=== PATIENT | female | born 1985 | race Hispanic/Latino ===

== ENCOUNTER 2016-10-01 06:49 | Emergency (ER) | payer OTHER ==
[~2016-10-01] VITALS: Ht 167.6 cm; Wt 107.0 kg
[~2016-10-01 06:49] MED LIST: ALBU8.5H2 INHALATION; AMOX500C2 PO; CALC600T12 PO; CLIN-78 PO; DOCU250C2 PO; LACT1CAP67 PO; NAPR500T PO; OMEP20TA86 PO; ONDA4TAB6 PO; OXYC1TAB24 PO; PRE20 PO; PREN-99 PO; VALA500T38 PO
[2016-10-01 06:52] VITALS: BP 124/74; PULSE 86; RESP 15; O2SAT 98
--- NOTE | 2016-10-01 07:21 | ED.REPORT ---
HPI-Preg Under 20 Weeks Date of Service October 01, 2016 ED Provider: Charlie Sanz MD The patient is a 7 week female w/ a hx of incompetent cervix who presents to the ED due to vaginal bleeding onset yesterday. She describes diffuse "abdominal pressure." She denies fever, vomiting, dizziness, nausea, and abdominal pain. Pt's last menstrual cycle began on August 13. Nursing Notes Stated Complaint: VAGINAL BLEEDING/8 WK PREG Chief Complaint: & Delivery Nursing Notes Reviewed: Yes Allergies: Coded Allergies: diphenhydramine (Verified Allergy, Severe, throat swell, 03/15/15) lactase (Verified Allergy, Intermediate, hives, 03/15/15) hydrocodone (Verified Allergy, Unknown, HIVES. TOLERATES OXYCODONE, ) Uncoded Allergies: MELONS (Allergy, Unknown, 11/16/13) Scheduled Albuterol HFA (Proair HFA) 8.5 Gm Hfa.aer.ad 2 PUFFS INHALATION Q4H Amoxicillin (Amoxicillin) 500 Mg Capsule 500 MG PO DAILY Calcium Carbonate (Calcium) 600 Mg Tablet 1,200 MG PO DAILY Cephalexin (Keflex) 500 Mg Capsule 500 MG PO QID Clindamycin (Clindamycin) 300 Mg Capsule 300 MG PO QID Lactobacillus Combination No.4 (Probiotic) 1 Each Capsule 1 EACH PO DAILY Omeprazole (Omeprazole) 20 Mg Tablet.dr 20 MG PO DAILY Prednisone (PredniSONE) 20 Mg Tablet 20 MG PO DAILY Valacyclovir (Valacyclovir) 500 Mg Tablet 500 MG PO DAILY Scheduled PRN Docusate Sodium (Docusate Sodium) 250 Mg Capsule 250 MG PO DAILY PRN PRN For Constipation Naproxen (Naprosyn) 500 Mg Tablet 500 MG PO BID PRN PRN For Pain Ondansetron (Zofran) 4 Mg Tablet 4 MG PO Q4H PRN PRN For Nausea oxyCODONE-Acetaminophen 5-325 mg (oxyCODONE-Acetaminophen 5-325 mg) 1 Each Tablet 1-2 TAB PO TID PRN PRN For Pain Miscellaneous Medications Pnv95/Ferrous Fumarate/FA ( Multivitamins Tablet) 1 Each Tablet 1 EACH PO General Time Seen by Provider: 07:31 Chief Complaint Vaginal bleeding Hx Obtained From: Patient Arrived By: Walk-in Onset Occurred: Yesterday Symptom Duration: Since onset Severity: Current: No pain currently Recent Healthcare: No recent doctor visit, No recent hospitalization Similar Sx Previous: No Past Medical History Past Medical History Rh positive Kidney infections Past Surgical History left jaw surgery, D and C Reports: Tonsillectomy Family History Mother 69 yo with DM2, HTN Father 99 yo from "old age" Smoking History Former Smoker Social History Alcohol Use: Denies alcohol use Drug Use: Denies drug use Other Social History: Good social support, Lives with children, Local resident 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 Ambulatory Status Independent Review of Systems Review of Systems Note: abdominal "pressure" Constitutional: Denies: Fever GI: Denies: Abdominal pain, Nausea, Vomiting Female: Reports: Vaginal bleeding - abnl Neurologic: Denies: Dizziness Complete sys rev & neg: except as marked. Physical Exam Initial Vital Signs Vital Signs (First) Date Time Temp Pulse Resp B/P Pulse Ox O2 Delivery O2 Flow Rate FiO2 10/01/16 06:52 36.2 86 15 124/74 98 Room Air Initial VS: Reviewed Head / Eyes: Atraumatic, Normocephalic, PERRL ENT: Mucous membranes moist, Conjunctiva normal Respiratory: Breath sounds normal, Clear to auscultation, No respiratory distress Cardiovascular: Regular rate & rhythm, Heart sounds normal, Intact distal pulses Extremities: Vascular intact, Neuro intact, No swelling, No tenderness Skin: Warm, Dry General/Constitutional: Awake, Alert, Cooperative, Not toxic appearing Abdomen: Atraumatic, Soft, Non-tender Female Genitourinary: No bleeding : FHT present by U/S, No bleeding Minimal clot in the vault no products of conception Interpretation & Diagnostics Lab Results Interpretation Result Diagram: 10/01/16 0745 Test 10/01/16 07:45 10/01/16 09:00 White Blood Count 8.9th/mm3 (3.8-10.1) Red Blood Count 4.57mil/mm3 (3.90-5.20) Hemoglobin 13.8g/dL (12.0-15.6) Hematocrit 41.2% (35.0-46.0) Mean Corpuscular Volume 90.2fL (81-100) Mean Corpuscular Hemoglobin 30.2pg (27.0-35.0) Mean Corpuscular Hemoglobin Concent 33.5% (32.0-37.0) Red Cell Distribution Width 13.6% (12.3-15.4) Platelet Count 176bil/L (150-400) HCG Beta Subunit [id number]/mL Hold [place] Top Tube Received (Received) Urine Color Yellow (YELLOW) Urine Appearance Cloudy (CLEAR,HAZY) Urine pH 5.5 (5.0-8.0) Urine Specific [place] 1.020 (1.003-1.035) Urine Protein Tracemg/dL (NEG,TRACE) Urine Glucose (UA) Negativemg/dL (NEGATIVE) Urine Ketones Negativemg/dL (NEGATIVE) Urine Occult Blood Large (NEGATIVE) Urine Nitrite Negative (NEGATIVE) Urine Bilirubin Negative (NEGATIVE) Urine Urobilinogen Normalmg/dL (NORMAL) Urine Leukocyte Esterase Small (NEGATIVE) Urine RBC Packed/hpf (0-2) Urine WBC 11-50/hpf (0-5) Urine Epithelial Cells Moderate/hpf (NONE-MOD) Urine Crystals None seen (NONE SEEN) Urine Bacteria Few/hpf (NONE-FEW) Urine Hyaline Casts None/lpf (NONE) Urine Granular Casts None seen (NONE SEEN) Urine Waxy Casts None seen (NONE SEEN) Urine Red Blood Cell Casts None seen (NONE SEEN) Urine White Blood Cell Casts None seen (NONE SEEN) Urine Mucus None seen (None Seen) Urine Trichomonas None seen (NONE SEEN) Urine Yeast None (NONE SEEN) Urinalysis Comment None Urine Culture Reflexed Indicated Re-Eval/Medical Decision Med Decision/Clinical Course 30-year-old at 7 weeks by LMP presenting with vaginal bleeding times one day. Ultrasound confirms intrauterine with heart tones 134. Patient with vaginal bleeding in first trimester. Threatened . Recommend follow-up with CLINICAL TRIAL LEADER on Monday. Return precautions if any worsening bleeding, signs symptoms anemia, worsening pain, fevers, any other new or worsening symptoms. Re-Evaluation/Progress : Time of Eval: 08:52 Re-Evaluation/Progress Note: Vaginal exam performed. Counseled Regarding: Diagnosis, Lab results, Need for follow-up, When/why to return to ED Discharge & Departure Primary Impression: Vaginal bleeding in Trimester: first trimester Qualified Code: O46.91 - Antepartum hemorrhage, unspecified, first trimester Disposition: Home Discharge Condition All VS Reviewed: Yes Condition: Stable Additional Instructions: The ultrasound showed that the baby has a heartbeat. There is still a possibility for miscarriage. I am sending you home with the antibiotic, Keflex, in case you have a urinary tract infection. Do not hesitate to return to the Emergency Department for any new or worsening symptoms including excessive bleeding, pain, dizziness, fatigue, or fever. Referrals: Belkys Hughes MD (PCP) Loboibthad Attestation Portion of this note were transcribed by Sadie Lopez. I, Dr. Sanz, personally performed the history, physical exam, and medical decision-making: I reviewed and confirmed the accuracy for the information in the transcribed note. Signed by: henrietta Pastor, 10/01/16 0900 copies to: Belkys Hughes MD, Ben M MD October 01, 2016 07:21 Sadie Lopez October 01, 2016 07:32
[2016-10-01 07:57] LABS: Mean Corpuscular Hemoglobin 30.2 pg (27.0-35.0); Mean Corpuscular Volume 90.2 fL (81-100)
[2016-10-01] MEDS ORDERED: CEPH-512 PO (09:04)
[2016-10-01 09:31] VITALS: BP_SYST 109; BP_SYST 124; BP_DIAS 72; BP_DIAS 74; PULSE 79; PULSE 86; RESP 15; RESP 16; O2SAT 97; O2SAT 98
[2016-10-01 10:01] LABS: APPEARANCE,URINE CLOUDY (CLEAR,HAZY); COLOR,URINE YELLOW (YELLOW); OCCULT BLOOD,URINE LARGE (NEGATIVE); PH,URINE 5.5 (5.0-8.0); UROBILINOGEN,URINE NORMAL (NORMAL)
--- NOTE | 2016-10-01 10:37 | DRSVH ---
PROCEDURE: US OB<14 WKS+OB TRANSVAG INDICATIONS: vag bleeding 1st trimester preg OUTSIDE/PRIOR DATING DATA: Last menstrual period (LMP): 08/13/16 LMP-based estimated date of delivery (LUPE): 05/20/17. First dating scan (date and location): 10/01/16. Estimated date of delivery (LUPE) from first dating scan: 05/19/17. TECHNIQUE: Real-time scanning was performed of the fetus and maternal pelvic organs, with image documentation. Endovaginal scanning was also performed to better visualize the fetus and maternal ovaries. COMPARISON: [facility], OB LTD+OB TRANSVAG, 03/15/2015, 15:33. [facility], US OB<14 WKS+OB TRANSVAG, 01/22/2015, 6:04. FINDINGS: Embryo: OB-INDIRECT SALES REPRESENTATIVE Ultrasound Procedure Report Early Gestation [employer] Mean Gestational Sac Diameter: 1.99 cm Gestational Age (MGSD): 6 weeks, 6 days [place] Rump Length: 1.20 cm Gestational Age (CRL): 7 weeks, 3 days Summary Fetus Summary Heart Rate: 135 bpm Comments: A normal yolk sac is noted. No perigestational bleeds. Measurement variability in dating: +/- 4 weeks by LMP, +/- 7 days by mean sac diameter (use before 6 weeks gestation if crown-rump length not able to be measured), +/- 5 days by crown-rump length (6-12 weeks gestation). Maternal organs: Ovaries are unremarkable with the appearance of a corpus luteal cyst of the left me asured 11 x 8 x 7 mm. Limited images through the kidneys demonstrate no hydronephrosis. IMPRESSION: 1. Single live intrauterine with ultrasound gestational age of 7 weeks 3 days with ultrasou nd LUPE of 05/19/17. 2. Recommend operative imaging at 20-22 weeks for dates and anatomy. Dictated by: Tabitha Diaz M.D. on 10/01/2016 at 10:34 Approved by: Tabitha Diaz M.D. on 10/01/2016 at 10:35
== END 2016-10-01 09:33 | disposition home or self-care (01) ==
LOC: SED 06:49
DX: O20.9 Hemorrhage in early pregnancy, unspecified (principal); Z3A.01 Less than 8 weeks gestation of pregnancy; Z87.891 Personal history of nicotine dependence; Z88.5 Allergy status to narcotic agent; Z88.8 Allergy status to other drugs, medicaments and biological substances

== ENCOUNTER 2016-10-11 22:57 | Emergency (ER) | payer OTHER ==
[~2016-10-11] VITALS: Ht 165.1 cm; Wt 88.6 kg
[~2016-10-11 22:57] MED LIST changes: +CEPH-512 PO
[2016-10-11 23:08] VITALS: BP 128/83; PULSE 98; RESP 16; O2SAT 98
--- NOTE | 2016-10-11 23:25 | ED.REPORT ---
HPI-Abd Pain F Under 40 Date of Service October 11, 2016 ED Provider: Dr. Barone Pt is a healthy 8 wk 30 y/o female w/ a hx of , incompetent uterus presenting to the ED c/o vaginal bleeding onset 1 hour ago. The patient had sexual intercourse and then developed heavy vaginal bleeding which has now resolved and passed some small blood clots. She reports that her bleeding has stopped. She denies any passed tissue. She denies any abdominal pain, fever, chills, nausea, vomiting. This is her 5th and she has only had 1 successful and therefore has been diagnosed with incompetent uterus. OB: [facility] [place] Nursing Notes Stated Complaint: 8 WEEKS /BLEEDING Chief Complaint: Female Abdominal Pain Nursing Notes Reviewed: Yes Allergies: Coded Allergies: diphenhydramine (Verified Allergy, Severe, throat swell, 03/15/15) lactase (Verified Allergy, Intermediate, hives, 03/15/15) hydrocodone (Verified Allergy, Unknown, HIVES. TOLERATES OXYCODONE, ) Uncoded Allergies: MELONS (Allergy, Unknown, 11/16/13) Scheduled Albuterol HFA (Proair HFA) 8.5 Gm Hfa.aer.ad 2 PUFFS INHALATION Q4H Amoxicillin (Amoxicillin) 500 Mg Capsule 500 MG PO DAILY Calcium Carbonate (Calcium) 600 Mg Tablet 1,200 MG PO DAILY Cephalexin (Keflex) 500 Mg Capsule 500 MG PO QID Clindamycin (Clindamycin) 300 Mg Capsule 300 MG PO QID Lactobacillus Combination No.4 (Probiotic) 1 Each Capsule 1 EACH PO DAILY Omeprazole (Omeprazole) 20 Mg Tablet.dr 20 MG PO DAILY Prednisone (PredniSONE) 20 Mg Tablet 20 MG PO DAILY Valacyclovir (Valacyclovir) 500 Mg Tablet 500 MG PO DAILY Scheduled PRN Docusate Sodium (Docusate Sodium) 250 Mg Capsule 250 MG PO DAILY PRN PRN For Constipation Naproxen (Naprosyn) 500 Mg Tablet 500 MG PO BID PRN PRN For Pain Ondansetron (Zofran) 4 Mg Tablet 4 MG PO Q4H PRN PRN For Nausea oxyCODONE-Acetaminophen 5-325 mg (oxyCODONE-Acetaminophen 5-325 mg) 1 Each Tablet 1-2 TAB PO TID PRN PRN For Pain Miscellaneous Medications Pnv95/Ferrous Fumarate/FA ( Multivitamins Tablet) 1 Each Tablet 1 EACH PO General Time Seen by MD: 23:25 Chief Complaint , 1st trimester, Other (vag bld) Hx Obtained From: Patient Arrived By: Walk-in Sudden in Onset?: Yes Onset Occurred: 1 - 4 hours ago Symptom Duration: Since onset Severity: Current: No pain currently Severity: Maximum: No pain Recent Healthcare: No recent doctor visit, No recent hospitalization Similar Sx Previous: No Past Medical History Past Medical History Rh positive Kidney infections Incompetent uterus Past Surgical History left jaw surgery, D and C Reports: Tonsillectomy Family History Mother 69 yo with DM2, HTN Father 99 yo from "old age" Smoking History Former Smoker Social History Alcohol Use: Denies alcohol use Drug Use: Denies drug use Other Social History: Good social support, Lives with children, Local resident 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 Ambulatory Status Independent Review of Systems Constitutional: Denies: Chills, Fever Respiratory: Denies: Non-productive cough, Shortness of breath Cardiovascular: Denies: Chest pain, Dyspnea on exertion GI: Denies: Abdominal pain, Diarrhea, Nausea, Vomiting Female: Reports: , Vaginal bleeding - abnl, Denies: Dysuria, Pelvic pain, Vaginal discharge Complete sys rev & neg: except as marked. Physical Exam Initial Vital Signs Vital Signs (First) Date Time Temp Pulse Resp B/P Pulse Ox O2 Delivery O2 Flow Rate FiO2 17 23:08 36.9 98 16 128/83 98 Room Air Initial VS: Reviewed, Vital signs normal Head / Eyes: Atraumatic, Normocephalic, PERRL ENT: Mucous membranes moist, Conjunctiva normal, No scleral icterus Neck: Supple, Full range of motion Extremities: Vascular intact, Neuro intact, No swelling, No tenderness Skin: Warm, Dry, No cyanosis Neurologic: Alert, Oriented, Nonfocal Psychiatric: Mood/affect normal, Behavior normal, Normal thought content General/Constitutional: Awake, Alert, No acute distress, Well appearing, Cooperative, Not toxic appearing Respiratory / Chest: Breath sounds NL, Breath sounds = bilat, No respiratory distress, No rales, No rhonchi, No wheezing Cardiovascular: Heart rate NL, Regular rhythm, Heart sounds NL, No gallop, No murmurs, No rubs, Cap refill not delayed, Peripheral circulation NL Abdomen: Atraumatic, Soft, Non-tender, No guarding, No rebound, No distention, No palpable mass Back: Full range of motion, Painless range of motion : FHTs NL, FHT present by U/S, Contractions not present, No bleeding, movement present, Uterine size c/w dates 160 bpm Interpretation & Diagnostics Lab Results Interpretation Result Diagram: 10/11/16 2340 10/11/16 2340 Test 10/11/16 23:34 10/11/16 23:40 Hold Urine Received (Received) White Blood Count 12.5th/mm3 (3.8-10.1) Red Blood Count 4.59mil/mm3 (3.90-5.20) Hemoglobin 13.9g/dL (12.0-15.6) Hematocrit 41.1% (35.0-46.0) Mean Corpuscular Volume 89.5fL (81-100) Mean Corpuscular Hemoglobin 30.3pg (27.0-35.0) Mean Corpuscular Hemoglobin Concent 33.8% (32.0-37.0) Red Cell Distribution Width 13.5% (12.3-15.4) Platelet Count 225bil/L (150-400) Neutrophils (%) (Auto) 62.4% (40-74) Lymphocytes (%) (Auto) 28.0% (14-46) Monocytes (%) (Auto) 6.6% (4-12) Eosinophils (%) (Auto) 2.3% (0-5) Basophils (%) (Auto) 0.2% (0-3) Sodium Level 139mEq/L (134-144) Potassium Level 4.0mEq/L (3.5-5.2) Chloride Level 103mEq/L (97-108) Carbon Dioxide Level 20mmol/L (18-29) Blood Urea Nitrogen 10mg/dL (6-20) Creatinine 0.56mg/dL (0.57-1.00) Estimat Glomerular Filtration Rate 185mL/min (>59) Glucose Level 120mg/dL (60-99) Calcium Level 9.0mg/dL (8.5-10.1) Total Bilirubin 0.2mg/dL (0.0-1.2) Aspartate Amino Transf (AST/SGOT) 49U/L (0-50) Alanine Aminotransferase (ALT/SGPT) 73U/L (0-32) Alkaline Phosphatase 99U/L (25-150) Total Protein 6.9g/dL (6.4-8.4) Albumin 4.1g/dL (3.4-5.0) HCG Beta Subunit [id number]/mL Urinalysis Interpretation Urinalys reviewed and NL CBC Interpretation CBC normal except, WBC elevated Re-Eval/Medical Decision Source of Hx: Old records Re-Evaluation/Progress : Time of Eval: 01:09 )( Re-Eval Abdomen: Soft, Non-tender Patient Status: Condition resolved, Complete relief Re-Evaluation/Progress Note: Pt rechecked. Informed pt of plan for treatment. Pt understands and agrees with plan for treatment. F/U instructions and RTER warnings given. All questions addressed. Consultation : Call Returned at: 00:03 Ordained Minister: Agrees with eval, Agrees with plan Note: Discussed case with the pt's specialized OB rail bonder Dr. De La Rosa. Agrees with plan for labs, DC and follow-up. Counseled Regarding: Diagnosis, Need for follow-up, When/why to return to ED Discharge & Departure Primary Impression: Threatened miscarriage in early Additional Impression: Vaginal bleeding in Trimester: first trimester Qualified Code: O46.91 - Antepartum hemorrhage, unspecified, first trimester Disposition: Home Discharge Condition All VS Reviewed: Yes Condition: Stable Patient Instructions: Threatened Miscarriage (DC) Additional Instructions: The ultrasound was reassuring. Pelvic rest. No sexual intercourse until informed otherwise by her energy efficiency finance manager. I consulted with the on-call energy efficiency finance manager for your doctor. She would like you to call the office tomorrow for a follow-up. Return to the emergency department if any problems or any new or worrisome symptoms. Return if you have any heavy bleeding or soak a pad an hour for 3 or more hours. Referrals: Belkys Hughes MD (PCP) Nacho Attestation Portions of this note were transcribed by Leighton Santillan. I, Dr. Barone personally performed the history, physical exam and medical decision-making; I reviewed and confirmed the accuracy of the information in the transcribed note. Signed by Nacho Womack, 10/11/16 - [id number] copies to: Belkys Hughes MD, Todd P DO October 11, 2016 23:25 LEIGHTON SANTILLAN October 11, 2016 23:33
[2016-10-12 00:43] LABS: BASOPHILS % (AUTO) 0.2 % (0-3); EOSINOPHILS % (AUTO) 2.3 % (0-5); MONOCYTES % (AUTO) 6.6 % (4-12); Mean Corpuscular Hemoglobin 30.3 pg (27.0-35.0); Mean Corpuscular Volume 89.5 fL (81-100); NEUTROPHILS % (AUTO) 62.4 % (40-74); Platelet Count 225 bil/L (150-400)
[2016-10-12 01:22] VITALS: BP 118/74; PULSE 78; RESP 14; O2SAT 98
== END 2016-10-12 01:28 | disposition home or self-care (01) ==
LOC: SED 22:57
DX: O20.0 Threatened abortion (principal); Z3A.08 8 weeks gestation of pregnancy; Z87.891 Personal history of nicotine dependence; Z88.5 Allergy status to narcotic agent; Z88.8 Allergy status to other drugs, medicaments and biological substances; Z91.018 Allergy to other foods